=== PATIENT | male | born 1965 | race African-American/Black ===

== ENCOUNTER 2021-08-20 10:39 | Emergency (ER) | payer OTHER ==
[~2021-08-20] VITALS: Ht 172.7 cm; Wt 78.0 kg
[2021-08-20 10:48] VITALS: BP 120/75
[2021-08-20] MEDS ORDERED: DICL75TA5 PO (11:03)
== END 2021-08-20 11:14 | disposition home or self-care (01) ==
LOC: ER 10:39
DX: M54.5 Low back pain (principal)
CPT/HCPCS: 99281; 99283

== ENCOUNTER 2021-11-23 07:18 | Emergency (ER) | payer OTHER ==
[~2021-11-23] VITALS: Ht 170.2 cm; Wt 85.0 kg
[~2021-11-23 07:18] MED LIST: DICL75TA5 PO
[2021-11-23] MEDS ORDERED: ACETAMINOPHEN 325MG TABLET PO ONE (09:00)
[2021-11-23] MEDS ORDERED: ALBUTEROL 6.7GM HFA INHALER ORI ONE (09:00)
[2021-11-23] MEDS ORDERED: ALBU6.7H9 INH (11:10)
[2021-11-23 11:16] VITALS: BP 135/64
== END 2021-11-23 11:16 | disposition home or self-care (01) ==
LOC: ER 07:18
DX: B34.9 Viral infection, unspecified (principal); Z20.822 Contact with and (suspected) exposure to COVID-19; Z98.890 Other specified postprocedural states
CPT/HCPCS: 71045; 94640; 99284; C9803; U0003; U0005

== ENCOUNTER 2022-03-23 04:39 | Emergency (ER) | payer OTHER ==
[~2022-03-23] VITALS: Ht 177.8 cm; Wt 84.4 kg
[~2022-03-23 04:39] MED LIST changes: +ALBU6.7H9 INH
[2022-03-23] MEDS ORDERED: LEVETIRACETAM 1000MG PREMIX 100 ML IV ONE (05:00)
[2022-03-23] MEDS ORDERED: HYDRALAZINE 20MG/ML VIAL IV ONE (05:15)
[2022-03-23 05:50] LABS: BASOPHILS % 0.9 % (0.0-2.0); EOSINOPHILS % 0.2 % (0.0-5.0); HEMATOCRIT. 44.1 % (42.0-52.0); HEMOGLOBIN. 15.2 g/dL (14.0-18.0); LYMPHOCYTES % 17.2 % (20.0-50.0); MEAN CORPUSCULAR HEMOGLOBIN 28.1 pg (28.0-32.0); MEAN CORPUSCULAR VOLUME 81.6 fL (80.0-94.0); MEAN PLATELET VOLUME 7.7 fl (7.4-10.4); NEUTROPHILS % 74.7 % (40.0-76.0); PLATELET 295 x1000/uL (130-400); RED BLOOD CELL COUNT 5.41 mill/uL (4.7-6.1); RED CELL DISTRIBUTION WIDTH 14.5 % (11.6-14.6)
[2022-03-23 05:54] LABS: CHLORIDE 106 mEq/L (98-107)
[2022-03-23 05:58] LABS: PARTIAL THROMBOPLASTIN TIME 29.8 sec (23.4-31.0); PROTHROMBIN TIME 10.7 sec (9.6-11.0)
[2022-03-23] MEDS ORDERED: LABETALOL HCL VIAL 20 MG/4 ML VIAL IV ONE (06:00)
[2022-03-23 06:05] LABS: ETHANOL BLOOD < 10 mg/dL
[2022-03-23 06:06] LABS: CLARITY URINE CLEAR (CLEAR); COLOR URINE YELLOW (YELLOW); KETONES URINE NEGATIVE (NEGATIVE); LEUKOCYTE ESTERASE URINE NEGATIVE (NEGATIVE); NITRITE URINE NEGATIVE (NEGATIVE); OCCULT BLOOD URINE NEGATIVE (NEGATIVE); PH URINE 7.5 (4.5-8.0); PROTEIN URINE NEGATIVE (NEGATIVE); SPECIFIC GRAVITY URINE 1.003 (1.005-1.030); UROBILINOGEN URINE 0.2 E.U./dL (0.2-1.0)
[2022-03-23 06:29] LABS: *AMPHETAMINES SCREEN URINE NEGATIVE (NEGATIVE); *BARBITURATES SCREEN URINE NEGATIVE (NEGATIVE); *BENZODIAZEPINES SCREEN URINE NEGATIVE (NEGATIVE); *COCAINE SCREEN URINE PRESUMTIVE POSITIVE (NEGATIVE); CANNABINOID URINE SCREEN NEGATIVE (NEGATIVE); METHADONE URINE SCREEN NEGATIVE (NEGATIVE); OPIATES URINE SCREEN NEGATIVE (NEGATIVE); PHENCYCLIDINE URINE SCREEN NEGATIVE (NEGATIVE)
[2022-03-23 06:58] VITALS: BP 157/111
== END 2022-03-23 07:08 | disposition short-term general hospital (02) ==
LOC: ER 04:39
DX: I62.9 Nontraumatic intracranial hemorrhage, unspecified (principal); I10 Essential (primary) hypertension; Z98.890 Other specified postprocedural states
CPT/HCPCS: 36415; 70450; 71045; 80053; 80305; 80320; 81003; 82962; 84484; 85025; 85610; 85730; 93005; 96365; 96375; 99291; J0360; J1953; J3490; G0480

== ENCOUNTER 2024-09-22 09:01 | Emergency (ER) | payer OTHER ==
[~2024-09-22] VITALS: Ht 170.2 cm; Wt 71.0 kg
[~2024-09-22 09:01] MED LIST changes: +ALBU6.7H3 INH; -ALBU6.7H9 INH
[2024-09-22 09:02] VITALS: O2SAT 99
[2024-09-22 09:08] VITALS: BP 148/96; PULSE 82; RESP 18; TEMP 98.7; O2SAT 99
[2024-09-22] MEDS ORDERED: AMOX-494 MT (09:32)
[2024-09-22] MEDS: DEXAMETHASONE 10 MG/ML VIAL IM ONE (09:56)
== END 2024-09-22 10:01 | disposition home or self-care (01) ==
LOC: ER 09:20
DX: J02.9 Acute pharyngitis, unspecified (principal); I10 Essential (primary) hypertension; N40.0 Benign prostatic hyperplasia without lower urinary tract symptoms; Z86.73 Personal history of transient ischemic attack (TIA), and cerebral infarction without residual deficits; Z98.890 Other specified postprocedural states
CPT/HCPCS: 99283; 96372; J1100